=== PATIENT | male | born 1995 | race Caucasian/White ===

== ENCOUNTER 2017-10-29 07:47 | Emergency (ER) | payer OTHER ==
[~2017-10-29] VITALS: Ht 175.3 cm; Wt 63.5 kg
[~2017-10-29 07:47] MED LIST: LORA10TA19 PO
[2017-10-29 07:52] VITALS: BP 119/65
--- NOTE | 2017-10-29 08:00 | NUR ---
PT. AMBULATED TO ER BED 3
--- NOTE | 2017-10-29 08:00 | NUR ---
22 YO M BIB MOTHER W/ C/O N/V/D AND ABD PAIN 8/ THAT WORSENS WHEN HE EATS OR THROWS UP. PT DENIES APPETITE CHANGES AT THIS TIME. STATES THAT HE DID EAT A PIECE OF RAW MEAT ABOUT 4 DAYS AGO AT [facility] [employer] AND SYMPTOMS STARTED SHORTLY AFTER. PT A&O X 4. GCS 15. CMS INTACT. AMBULATORY W/ STEADY GAIT. MUCOUS MEMBRAINES MOIST. ABD SOFT, NON-TENDER. ER MD SHIPLEY NOTIFIED. PT MEEDS MET. SAFETY PRECAUTIONS IN PLACE. WILL CONTINUE TO MONITOR.
[2017-10-29] MEDS ORDERED: ONDANSETRON 4 MG ODT PO ONE (08:15)
[2017-10-29] MEDS ORDERED: DICYCLOMINE 20 MG/2 ML VIAL IM ONE (08:15)
[2017-10-29] MEDS ORDERED: DICYCLOMINE HCL LIQUID 20 MG, ALUMINUM HYD/MAG/SIMETHICONE 30 ML, LIDOCAINE VISCOUS 2% ... PO ONE ×3 (08:15)
--- NOTE | 2017-10-29 08:28 | NUR ---
LAB AT BEDSIDE AT THIS TIME.
[2017-10-29 08:48] LABS: ANION GAP 11.3 (8-16); CARBON DIOXIDE 28.9 mmol/L (21-32); POTASSIUM 4.2 mmol/L (3.5-5.1)
[2017-10-29 08:54] LABS: ALBUMIN 3.9 g/dL (3.4-5.0); TOTAL BILIRUBIN 0.4 mg/dL (0.0-1.0)
[2017-10-29 09:23] VITALS: BP 132/89
--- NOTE | 2017-10-29 09:24 | NUR ---
Patient discharged with v/s stable. Written and verbal after care instructions given and explained. Patient alert, oriented and verbalized understanding of instructions. Ambulatory with steady gait. All questions addressed prior to discharge. ID band removed. Patient advised to follow up with PMD. Rx of DARON LO CIPRO given. Patient educated on indication of medication including possible reaction and side effects. Opportunity to ask questions provided and answered.
== END 2017-10-29 09:23 | disposition home or self-care (01) ==
LOC: MED 07:47
DX: R10.9 Unspecified abdominal pain (principal); R19.7 Diarrhea, unspecified; R11.2 Nausea with vomiting, unspecified
CPT/HCPCS: 36415; 80053; 83690; 96372; 99284; J0500; S0119

== ENCOUNTER 2017-12-10 08:05 | Emergency (ER) | payer OTHER ==
[~2017-12-10] VITALS: Ht 175.3 cm; Wt 80.4 kg
[2017-12-10 08:10] VITALS: BP 135/85
--- NOTE | 2017-12-10 08:14 | NUR ---
PT AMBULATES TO BED 12, REPORT GIVEN TO MYRON EVANS
--- NOTE | 2017-12-10 08:20 | NUR ---
PATIENT PRESENTS TO ED WITH COMPLAINTS OF RECTAL BLEEDING. PATIENT STATES HE NOTICED IT YESTERDAY AFTER BOWEL MOVEMENT. DENIES CONSTIPATION, N/V/D. SKIN IS PINK/WARM/DRY; AAOX4 WITH EVEN AND STEADY GAIT; LUNGS CLEAR BL; HR EVEN AND REGULAR; PT DENIES ANY FEVER, CP, SOB, OR COUGH AT THIS TIME; VSS; PATIENT POSITIONED FOR COMFORT; HOB ELEVATED; BEDRAILS UP X1; BED DOWN. ER MD MADE AWARE OF PT STATUS.
--- NOTE | 2017-12-10 09:04 | NUR ---
Patient appears to be resting comfortably in bed. Vital Signs within normal limits. Respirations even and unlabored.
--- NOTE | 2017-12-10 10:00 | NUR ---
Patient discharged with v/s stable. Written and verbal after care instructions given and explained. Patient alert, oriented and verbalized understanding of instructions. Ambulatory with steady gait. All questions addressed prior to discharge. ID band removed. Patient advised to follow up with PMD. Rx of RECTICARE KIT, ANUSOL, COLACE, AND WITCH CARLOS given. Patient educated on indication of medication including possible reaction and side effects. Opportunity to ask questions provided and answered.
[2017-12-10 10:02] VITALS: BP 117/63
== END 2017-12-10 10:00 | disposition home or self-care (01) ==
LOC: MED 08:05
DX: K64.5 Perianal venous thrombosis (principal); Z91.018 Allergy to other foods; Z79.899 Other long term (current) drug therapy
CPT/HCPCS: 81002; 99283

== ENCOUNTER 2018-03-06 08:39 | Emergency (ER) | payer OTHER ==
[~2018-03-06] VITALS: Ht 172.7 cm; Wt 75.3 kg
[2018-03-06 08:41] VITALS: BP 119/63
--- NOTE | 2018-03-06 08:50 | NUR ---
22 yo m to er w/c/o n/v in the am after taking multivit. pt admits to marijuana use in the evenings, pt states 1 ebisode vomiting in the am for 2 mo 1-2 times a wk. pt denies any cp, sob, abd pain, n/v/d at this time. LS clear throughout. BS activex4 , abc soft and non tender. will continue to monitor. pt positioned for comfort er made aware.
--- NOTE | 2018-03-06 08:50 | NUR ---
PT AMBULATES TO BED 11
--- NOTE | 2018-03-06 09:25 | NUR ---
Patient being evaluated by physician at bedside.
--- NOTE | 2018-03-06 09:38 | NUR ---
lab at bed side
[2018-03-06 09:50] LABS: BASOPHILS % (AUTO) 0.6 % (0.0-2.0); EOSINOPHILS # (AUTO) 0.1 K/uL (0-0.4); EOSINOPHILS % (AUTO) 1.6 % (0.0-4.0); HEMATOCRIT 44.4 % (36-52); HEMOGLOBIN 14.8 g/dL (12.0-18.0); LYMPHOCYTES # (AUTO) 1.2 K/uL (2.0-11.5); LYMPHOCYTES % (AUTO) 18.7 % (20.5-51.1); MEAN CORPUSCULAR HEMOGLOBIN 30 pg (27-31); MEAN CORPUSCULAR HGB CONC 33 g/dL (33-37); MEAN CORPUSCULAR VOLUME 89.3 fL (80-94); MONOCYTES # (AUTO) 0.3 K/uL (0.8-1.0); MONOCYTES % (AUTO) 4.2 % (1.7-9.3); NEUTROPHILS # (AUTO) 4.8 K/uL (1.8-7.7); NEUTROPHILS % (AUTO) 74.9 % (42.2-75.2); PLATELET COUNT (AUTO) 264 K/uL (140-450); RED BLOOD CELL COUNT(AUTO) 4.97 MIL/uL (4.20-6.10); RED CELL DISTRIBUTION WIDTH 14.1 % (11.6-13.7); WHITE BLOOD COUNT (AUTO) 6.5 K/uL (4.8-10.8)
[2018-03-06 10:01] LABS: APPEARANCE,URINE CLEAR (CLEAR); BILIRUBIN,URINE NEGATIVE (NEGATIVE); BLOOD, URINE NEGATIVE (NEGATIVE); COLOR,URINE YELLOW (YELLOW); LEUKOCYTE ESTERASE ,URINE NEGATIVE (NEGATIVE); NITRITE, URINE NEGATIVE (NEGATIVE); PH,URINE 7.5 (5.0-9.0); UGLUCOSE NEGATIVE (NEGATIVE)
[2018-03-06 10:07] LABS: BARBITURATE, URINE NEG. ng/ml (NEG <=200); BENZODIAZEPINE, URINE NEG. ng/mL (NEG <=200); CANNABINOID, URINE POS. ng/mL (NEG <=50); COCAINE, URINE NEG. ng/mL (NEG <=300); OPIATE, URINE NEG. ng/mL (NEG <=2000); PHENCYCLIDINE SCREEN,URINE NEG. ng/mL (NEG <=25)
[2018-03-06 10:19] LABS: ANION GAP 9.2 (8-16); CARBON DIOXIDE 29.9 mmol/L (21-32); POTASSIUM 5.1 mmol/L (3.5-5.1)
--- NOTE | 2018-03-06 10:20 | NUR ---
PT RESTING IN BED IN NO APPEARENT DISTRESS, PT DENIES ANY PAIN, RR EVEN AND UNLABORED
[2018-03-06 10:25] LABS: ALBUMIN 4.3 g/dL (3.4-5.0); TOTAL BILIRUBIN 0.3 mg/dL (0.0-1.0)
[2018-03-06 11:34] VITALS: BP 118/64
--- NOTE | 2018-03-06 11:34 | NUR ---
Patient discharged with v/s stable. Written and verbal after care instructions given and explained. Patient alert, oriented and verbalized understanding of instructions. Ambulatory with steady gait. All questions addressed prior to discharge. ID band removed. Patient advised to follow up with PMD. Rx of SUZIE NERI given. Patient educated on indication of medication including possible reaction and side effects. Opportunity to ask questions provided and answered.
== END 2018-03-06 11:34 | disposition home or self-care (01) ==
LOC: MED 08:39
DX: F12.188 Cannabis abuse with other cannabis-induced disorder (principal); K31.84 Gastroparesis; Z91.048 Other nonmedicinal substance allergy status; Z79.899 Other long term (current) drug therapy
CPT/HCPCS: 36415; 80053; 80305; 81003; 83690; 85025; 99284